=== PATIENT | male | born 1950 | race Caucasian/White ===

== ENCOUNTER → 2022-12-24 | Outpatient (CLI) | payer MEDICARE, OTHER ==
--- NOTE | 2022-12-25 23:16 | PE ---
EXAMINATION TYPE: PET CT fusion skull to thigh DATE OF EXAM: 12/24/2022 CLINICAL INDICATION:Male, 72 years old with history of R91.1; TECHNIQUE: Following the intravenous administration of 12.9 mCi of F-18 FDG, whole body images are performed from the skull base to the midthigh. Images are reviewed on the computer in the coronal, a xial, and sagittal planes. Reconstructed rotating images are created on independent workstation and reviewed on the computer. A non-contrast CT is performed in conjunction with the PET scan. Glucose level 107 mg/dL COMPARISON: CT None, PET/CT None, FINDINGS: Mediastinal SUV mean is 1.9. Hepatic parenchyma SUV mean is 2.6. SKULL BASE AND NECK: No suspicious radiotracer activity. CHEST, MEDIASTINUM, AND HILAR REGION: * Midlung nodule measuring 18 x 13 mm without increased metabolic activity max SUV 1.0. There is tra ce pleural fluid along the fissure. * No additional nodules that are within the sensitivity of PET/CT. * No suspicious FDG activity within the thorax. ABDOMEN AND PELVIS: No suspicious radiotracer activity. OSSEOUS STRUCTURES: Loop recorder in the left chest wall mild FDG activity. There is a rib fracture n ear the loop recorder with increased FDG activity max SUV 3.1 of the anterior aspect of left rib 3. N o suspicious FDG activity. OTHER CT: Atherosclerosis of the arterial vasculature including the carotid bifurcations. There is di lated internal jugular veins bilaterally right greater than left. Three-vessel coronary atheroscleros is. The heart is mildly enlarged for size. Gallbladder surgical bed demonstrates multiple calcific de nsities could represent contracted gallbladder with gallstones versus postsurgical change. Small fat- containing umbilical hernia. Bilateral inguinal hernias. IMPRESSION: 1. No suspicious radiotracer activity. Left lung nodule near the fissure could represent loculated f luid within the fissure given fluid near the peripheral aspect of the fissure. No suspicious FDG acti vity within the thorax. No priors were available for comparison at the time of this dictation 2. Left rib 3 fracture anteriorly near the loop recorder.
== END | disposition home or self-care (01) ==
LOC: RADPETMAIN 09:54
PROVIDERS: ATTEND Nurse Practitioner Family
DX: R91.1 Solitary pulmonary nodule (principal); S22.42XA Multiple fractures of ribs, left side, initial encounter for closed fracture; X58.XXXA Exposure to other specified factors, initial encounter
CPT/HCPCS: 78815; A9552